=== PATIENT | female | born 1995 | race Caucasian/White ===

== ENCOUNTER 2019-03-06 17:51 | Emergency (ER) | payer OTHER ==
--- NOTE | 2019-03-06 18:25 | ED Physician Documentation ---
Abdominal Pain - HISTORIAN Historian: patient - HPI Stated Complaint: rectal bleeding Chief Complaint: Abdominal Pain Additonal Information: Patient presents to ED with a 2 week history of diarrhea, rectal bleeding and abdominal pain. Patient states she just started a new job and had been eating out more. She thought this had flared her IBS and that is why she was having diarrhea, however, she began to have blood on the toilet paper about 5 days ago. She states her rectum is very sore and it hurts to wipe. She complains of RLQ, LLQ pain especially with ambulation. Denies fever, chills, night sweats, nausea or vomiting. Onset: days ago (14) Duration: persistent Timing: still present Context: denies: out of country travel Severity: moderate Quality: aching, sharp, stabbing Associated Symptoms: diarrhea, bloody stools. denies: fever, chills, nausea, vomiting, bloody emesis, chest pain Exacerbated by: walking Relieved by: supine Further Comments: no - ROS CONST: no problems GI/: none CVS/RESP: denies: shortness of breath EYES/ENT: none MS/SKIN/LYMPH: none NEURO/PSYCH: none - SOCIAL HX Smoking History: non-smoker Alcohol Use: none Drug Use: none - FAMILY HX Family History: none - PAST HX Past History: none Ischemic Bowel Risk Factors: none Other History: none Surgeries/Procedures: appendectomy Home Medications: Ambulatory Orders Medication Instructions Recorded Ciprofloxacin HCl [Cipro] 500 mg PO BID #20 tablet 03/06/19 Hydrocortisone 2.5% Rectal 1 applic RC TID #1 tube 03/06/19 [Proctosol-Hc 2.5% Rectal Cream] Medroxyprogesterone Acetate 10 mg PO DAILY 03/06/19 [Provera] metroNIDAZOLE [Flagyl] 500 mg PO Q8 #30 tablet 03/06/19 Allergies/Adverse Reactions: Allergies Allergy/AdvReac Type Severity Reaction Status Date / Time venom-wasp protein Allergy Verified 03/06/19 18:18 - VITAL SIGNS Vital Signs: Vital Signs Temp Pulse Resp BP Pulse Ox 98.1 F 107 H 14 106/68 97 03/06/19 17:54 03/06/19 17:54 03/06/19 17:54 03/06/19 17:54 03/06/19 17:54 - REVIEWED ASSESSMENTS Nursing Assessment Reviewed: Yes Vitals Reviewed: Yes ED Results Lab/Radiology - Lab Results Lab Results: Lab Results 03/06/19 03/06/19 18:29 18:29 WBC 14.80 K/ul H K/ul (4.00-12.00) RBC 4.82 M/ul M/ul (3.90-5.20) Hgb 13.2 g/dL g/dL (11.5-16.0) Hct 39.6 % % (34.5-46.5) MCV 82.0 fl fl (80.0-100.0) MCH 27.3 pg L pg (28.0-34.0) MCHC 33.3 g/dL g/dL (30.0-36.0) RDW 14.6 % H % (11.3-14.3) Plt Count 470 K/mm3 H K/mm3 (130-400) Neut % (Auto) 54.3 % % (39.0-79.0) Lymph % (Auto) 36.5 % % (16.0-50.0) [place] % (Auto) 4.9 % % (0.0-11.0) Eos % (Auto) 2.9 % % (0.0-6.8) Baso % (Auto) 1.4 % % (0.0-1.5) Neut # (Auto) 8.0 # k/uL H # k/uL (1.4-7.7) Lymph # (Auto) 5.4 # k/uL H # k/uL (0.6-4.0) [place] # (Auto) 0.7 # k/uL # k/uL (0.0-0.9) Eos # (Auto) 0.4 # k/uL # k/uL (0.0-0.6) Baso # (Auto) 0.2 # k/uL # k/uL (0.0-0.5) Sodium 137 mmol/L mmol/L (137-145) Potassium 3.9 mmol/L mmol/L (3.5-5.1) Chloride 102 mmol/L mmol/L (98-107) Carbon Dioxide 25 mmol/L mmol/L (22-30) BUN 11 mg/dL mg/dL (7-17) Creatinine 0.65 mg/dL mg/dL (0.52-1.04) Estimated Creat Clear 230 Est GFR ( Amer) > 60 (60 - ) Est GFR (Non-Af Amer) > 60 (60 - ) Glucose 114 mg/dL H mg/dL (74-106) Calcium 9.7 mg/dL mg/dL (8.4-10.2) Total Bilirubin 0.1 mg/dL L mg/dL (0.2-1.3) AST 24 U/L U/L (15-46) ALT 37 U/L H U/L (0-35) Alkaline Phosphatase 68 U/L U/L (38-126) Total Protein 8.1 g/dL g/dL (6.3-8.2) Albumin 4.3 g/dL g/dL (3.5-5.0) UA - negative HCG - negative - Radiology Radiology Impressions: Report Submission Date: Mar 06, 2019 7:12:02 PM CDT Patient Study Name: ELISEO ESTRADA Date: Mar 06, 2019 6:49:41 PM CDT Modality Type: CT\SR Gender: F Description: CT ABD PELVIS W/ CON : 94 Institution: [facility] Physician: JAX MARTINEZ CT abdomen and pelvis with intravenous contrast HISTORY Abdominal pain, diarrhea, rectal bleeding TECHNIQUE Images through the abdomen and pelvis were obtained following intravenous contrast administration. FINDINGS The lung bases, liver, gallbladder, spleen, pancreas, kidneys and adrenal glands are normal. There is no hydronephrosis, hydroureter, free intraperitoneal air or fluid. There is no bowel obstruction. The stomach is moderately distended with food. The appendix is not seen. The uterus is grossly normal. The aorta enhances normally. IMPRESSION Moderate gastric distention. No acute abnormality. Electronically signed on Mar 06, 2019 7:12:02 PM CDT by: Damian Guido - Orders Orders: ED Orders Category Date Time Status Place IV Lock 1T Care 03/06/19 18:[address] ABD & PELVIS W/ CON Stat Exams 03/06/19 Taken CBC/PLATELET/DIFF Routine Lab 03/06/19 18:29 Completed CMP Routine Lab 03/06/19 18:29 Completed UA W/MICRO IF INDICATED Routine Lab 03/06/19 18:31 Ordered URINE HCG Stat Lab 03/06/19 Ordered 0.9 % Sodium Chloride [Normal Saline] 1,000 ml Med 03/06/19 18:30 Active IV Q1H Abdominal Pain Physical Exam - Physical Exam General Appearance: no acute distress, alert EENT: DEANNE NECK: supple RESPIRATORY: no resp distress, chest non-tender, breath sounds normal CVS: reg rate & rhythm, heart sounds normal ABDOMEN: soft, normal bowel sounds, other (RLQ, LLQ, LUQ tenderness) RECTAL: hemorrhoids BACK: normal inspection SKIN: warm/dry EXTREMITIES: non-tender NEURO: oriented X3, mood/affect nml Vital Signs: Vital Signs Temp Pulse Resp BP Pulse Ox 98.1 F 107 H 14 106/68 97 03/06/19 17:54 03/06/19 17:54 03/06/19 17:54 03/06/19 17:54 03/06/19 17:54 Discharge Clincal Impression: Diarrhea Qualifiers: Diarrhea type: presumed infectious Qualified Code(s): R19.7 - Diarrhea, unspecified Prescriptions: Ciprofloxacin HCl [Cipro] 500 mg PO BID #20 tablet Hydrocortisone 2.5% Rectal [Proctosol-Hc 2.5% Rectal Cream] 1 applic RC TID #1 tube metroNIDAZOLE [Flagyl] 500 mg PO Q8 #30 tablet Referrals: Primary Doctor,No [Primary Care Provider] - 2 Days Additional Instructions: 1. Tylenol and/or Ibuprofen as needed for pain/fever 2. Take antibiotics until gone 3. Start taking Probiotic twice daily 4. Follow up with PCP within 1 week. Discuss work up for gallbladder if symptoms persist 5. Return to ER for new or worsening symptoms. Condition: Stable Disposition: 01 HOME, SELF-CARE Decision to Admit: NO Date of Decison to Admit: 03/06/19 Decision Time: 19:28
[2019-03-06] MEDS: 0.9 % SODIUM CHLORIDE 1,000 ML IV ONE (18:43)
[2019-03-06 18:55] LABS: MEAN CORPUSCULAR HEMOGLOBIN 27.3 pg (28.0-34.0)
[2019-03-06 18:56] LABS: BASOPHILS % 1.4 % (0.0-1.5); EOSINOPHILS % 2.9 % (0.0-6.8); MONOCYTES % 4.9 % (0.0-11.0)
[2019-03-06 19:01] LABS: eGFR (Non-African) > 60
[2019-03-06] MEDS: CIPROFLOXACIN HCL 500 MG TABLET PO ONE (19:23)
[2019-03-06] MEDS: metroNIDAZOLE 500 MG TABLET PO ONE (19:23)
[2019-03-06 19:50] VITALS: BP 116/74
[2019-03-06 20:25] LABS: APPEARANCE,URINE CLOUDY (CLEAR); COLOR,URINE YELLOW (YELLOW); OCCULT BLOOD,URINE NEGATIVE (NEGATIVE); UROBILINOGEN URINE 0.2 Eu (0.2-1.0)
--- NOTE | 2019-03-06 20:35 | Diagnostic Imaging Report ---
JAX MARTINEZ [facility] [address] [facility] [address] [place], [place]. [address] Report Submission Date: Mar 06, 2019 7:12:02 PM CDT Patient Study Name: ELISEO ESTRADA Date: Mar 06, 2019 6:49:41 PM CDT Modality Type: CT\SR Gender: F Description: CT ABD PELVIS W/ CON : 94 Institution: [facility] Physician: JAX MARTINEZ CT abdomen and pelvis with intravenous contrast HISTORY Abdominal pain, diarrhea, rectal bleeding TECHNIQUE Images through the abdomen and pelvis were obtained following intravenous contrast administration. FINDINGS The lung bases, liver, gallbladder, spleen, pancreas, kidneys and adrenal glands are normal. There is no hydronephrosis, hydroureter, free intraperitoneal air or fluid. There is no bowel obstruction. The stomach is moderately distended with food. The appendix is not seen. The uterus is grossly normal. The aorta enhances normally. IMPRESSION Moderate gastric distention. No acute abnormality. Electronically signed on Mar 06, 2019 7:12:02 PM CDT by: Damian CHAUDHARI
== END 2019-03-06 19:49 | disposition home or self-care (01) ==
LOC: ED 17:51
DX: R19.7 Diarrhea, unspecified (principal)
CPT/HCPCS: 36415; 74177; 80053; 81002; 81025; 85025; 99283; 99284; J7030; Q9967; S1016